=== PATIENT | female | born 1990 | race Caucasian/White ===

== ENCOUNTER 2018-06-11 09:17 | Emergency (ER) | payer OTHER, SELFPAY ==
[2018-06-11 09:33] VITALS: BP 116/86; PULSE 88; RESP 20; TEMP 37.4; O2SAT 98; BMI 30.1
--- NOTE | 2018-06-11 10:12 | ED_ITS ---
HPI - URI/Sore Throat General Chief Complaint: Upper Respiratory Symptoms Stated Complaint: strep throat Time Seen by Provider: 06/11/18 10:11 Source: patient Mode of arrival: ambulatory Limitations: no limitations History of Present Illness HPI Narrative: Patient is a 27-year-old female who presents to sore throat ongoing for last 4 days. She is able swallow and manage her own secretions however it is extremely painful. She actually is quite foul-smelling breath while talking to her. She has a nonproductive cough. MD Complaint: fever, cough, sore throat and rhinorrhea Onset (ago): day(s) (4) Duration: constant Exacerbating factors: swallowing Related Data Previous Rx's Medication Instructions Recorded clindamycin HCl 300 mg PO QID #28 cap 06/11/18 Review of Systems Constitutional Reports body ache(s), Reports chills, Reports fatigue and Reports fever(s) ENT Ears, Nose, Mouth, and Throat: Reports as per HPI, Reports halitosis and Reports sore throat Cardiovascular Denies dyspnea Respiratory Reports cough, Denies excessive phlegm production, Denies pain on inspiration and Denies dyspnea Gastrointestinal Gastrointestinal: Denies abdominal pain, Denies change in bowel habits, Denies diarrhea, Denies nausea and Denies vomiting Musculoskeletal Denies back pain, Denies muscle weakness, Denies numbness and Denies tingling Integumentary/Breasts Denies pruritus, Denies erythema, Denies rash and Denies wounds Neurologic Denies numbness and Denies tingling Endocrine Reports fatigue PFSH Medical History Patient denies significant medical history (Acute) Social History Smoking Status: Never smoker Social History Smoking Status: Never smoker Exam Initial Vital Signs Initial Vital Signs: Vital Signs Temperature 99.4 F 06/11/18 09:33 Pulse Rate 88 06/11/18 09:33 Respiratory Rate 20 06/11/18 09:33 Blood Pressure 116/86 06/11/18 09:33 Pulse Oximetry 98 06/11/18 09:33 GENERAL: In position appears to not feel well HEENT: Head atraumatic,EOMI, pupils reactive, face symmetric, neck is supple no meningeal signs PHARYNX: Erythematous gross pus no uvula deviation no tonsillar swelling CARDIOVASCULAR: Regular rate and rhythm without murmurs, rubs or gallops. RESPIRATORY: Breath sounds equal bilaterally, no wheezes rales or rhonchi. ABDOMEN: Soft, nontender. Normoactive bowel sounds all 4 quadrants. No guarding or rebound. EXTREMITIES: Normal range of motion, no clubbing or edema. Neurovascularly int act NEUROLOGICAL: Alert and oriented x4.Normal gait and speech. SKIN: Warm, dry, no laceration, no petechiae, no rashes or lesions. Course Vital Signs - 8 hr 06/11/18 09:33 Temperature 99.4 F Pulse Rate 88 Respiratory Rate 20 Blood Pressure 116/86 Pulse Oximetry 98 MDM - URI/Sore Throat Lab Data Point of Care Testing Rapid Strep A Positive Discharge Plan Departure Patient Disposition: Home Clinical Impression: Acute streptococcal pharyngitis Discharge Date/Time: 06/11/18 10:37 Interventions: ED Discharge Assessment Last Done: 06/11/18 10:35 Instructions: DI for Strep Throat Activity Restrictions/Additional Instructions: *You have been diagnosed with strep pharyngitis *What to do: Increase fluid intake *Continue to take medications as directed Clindamycin 300 mg 4 times a day for 7 days *Follow up with your primary care provider in 2-3 days *Return to ER if you should have difficulty swallowing, inability to swallow or any new, worsening or concerning symptoms Prescriptions: New clindamycin HCl 300 mg capsule 300 mg PO QID Qty: 28 RF: 0 Stand Alone Forms: Work Release Note, Work/School Release
[2018-06-11 10:35] VITALS: BP 101/75; PULSE 92; RESP 20; O2SAT 99
== END 2018-06-11 10:37 | disposition home or self-care (01) ==
PROVIDERS: Emergency Provider Emergency Medicine
DX: J02.0 Streptococcal pharyngitis (principal)
CPT/HCPCS: 87880; 99282; 99283

== ENCOUNTER 2018-11-03 20:26 | Emergency (ER) | payer OTHER, SELFPAY ==
--- NOTE | 2018-11-03 20:28 | ED_ITS ---
HPI - Extremity Injury (Upper) General Chief Complaint: Extremity Injury, Upper Stated Complaint: right shoulder pain Time Seen by Provider: 11/03/18 20:27 Source: patient and family Mode of arrival: ambulatory Limitations: no limitations History of Present Illness HPI narrative: 28-year-old female nonsmoker with benign medical history presents with a chief complaint severe right anterior shoulder pain gradually worsening since yesterday. She had performed a rather typical upper body workout and denies any memorable moment suggesting injury. She denies direct trauma. She denies numbness, weakness or history of the same MD complaint: injury to: right Onset (ago): day(s) Other injuries: none Handedness: right Place: other Severity: moderate Relieving factors: rest Exacerbating factors: movement of extremity Associated symptoms: denies other symptoms Related Data Previous Rx's Medication Instructions Recorded clindamycin HCl 300 mg PO QID #28 cap 06/11/18 Allergies Allergy/AdvReac Type Severity Reaction Status Date / Time No Known Drug Allergies Allergy Verified 11/03/18 20:37 Review of Systems Constitutional Denies chills, Denies fever(s), Denies lethargy and Denies weakness Eyes Denies change in vision, Denies eye discharge, Denies irritation and Denies loss of vision ENT Ears, Nose, Mouth, and Throat: Denies change in voice, Denies neck pain and Denies sore throat Cardiovascular Denies chest pain, Denies irregular heart rhythm, Denies lightheadedness, Denies palpitations, Denies dyspnea, Denies dyspnea on exertion and Denies orthopnea Respiratory Denies cough, Denies dyspnea, Denies dyspnea on exertion and Denies wheezing Gastrointestinal Gastrointestinal: Denies abdominal pain, Denies change in bowel habits, Denies diarrhea, Denies nausea and Denies vomiting Genitourinary Denies hematuria, Denies flank pain, Denies urinary incontinence and Denies urinary urgency Musculoskeletal Reports limited range of motion and Denies neck pain Integumentary/Breasts Denies pruritus, Denies erythema, Denies rash and Denies wounds Neurologic Denies confusion, Denies loss of vision and Denies weakness Psychiatric Denies anxiety, Denies confusion, Denies depression, Denies homicidal ideation and Denies suicidal ideation Endocrine Denies palpitations Hematologic/Lymphatic Denies easy bruising Allergic/Immunologic Denies wheezing [facility] Medical History Patient denies significant medical history (Acute) Social History Smoking Status: Never smoker Social History Smoking Status: Never smoker Exam Narrative Exam Narrative: GEN: AOx3 and in mild distress EYES: Pupils are equal, round, and reactive to light and accommodation. Extraoccular muscles are intact bilaterally. There is no subconjunctival hemorrhage or exudate. CHEST: Lungs are clear to auscultation bilaterally and free of wheezes, rales, or rhonchi. Heart rate is regular rhythm, there are no murmurs, clicks, rubs, or gallops. There is no chest wall tenderness. ABD: Abdomen is soft and nontender. There is no guarding or rebound. Bowel sounds are normal in all 4 quadrants. There is no mass or organomegaly. EXT: Full but painful range of motion of right shoulder. She has 5/5 strength and no loss of sensation. Cap refill less than 2 seconds. She is most tender in the anterior shoulder in the distribution of the biceps tendon SKIN: Warm, pink, and dry. No erythema or rash Initial Vital Signs Initial Vital Signs: Vital Signs Temperature 98.4 F 11/03/18 20:37 Pulse Rate 66 11/03/18 20:37 Respiratory Rate 18 11/03/18 20:37 Blood Pressure 136/84 11/03/18 20:37 Pulse Oximetry 97 11/03/18 20:37 Course Vital Signs - 8 hr 11/03/18 20:37 Temperature 98.4 F Pulse Rate 66 Respiratory Rate 18 Blood Pressure 136/84 Pulse Oximetry 97 MDM - Extremity Injury (Upper) MDM Narrative Medical decision making narrative: Patient has full but painful range of motion of shoulder in the absence of memory will injury or direct trauma. X-ray not indicated as there is no bony point tenderness or high risk trauma. History and physical would suggest soft tissue injury, patient refuses a sling at this point in time. Return precautions given, questions answered to her apparent sat isfaction Discharge Plan Departure Patient Disposition: Home Clinical Impression: Muscle strain of right shoulder Qualifiers: Encounter type: initial encounter Qualified Code(s): S46.911A - Strain of unspecified muscle, fascia and tendon at shoulder and upper arm level, right arm, initial encounter Instructions: DI for Shoulder Sprain Activity Restrictions/Additional Instructions: *You have been diagnosed with [right shoulder strain] *What to do: *Take medications as directed: Motrin on a schedule as we discussed *Follow up with your primary care provider in 5-7 days, call for an appointment. Let them know you were seen in the Emergency Department and that we ask that you be seen in follow up *Return to ER if you should have any new, worsening or concerning symptoms, such as [worsening pain, weakness, worsening numbness, tingling or other bothersome symptoms * consider the use of resistance bands as we discussed * if you change your mind and decide you would like a shoulder sling they can be found at most local pharmacies Prescriptions: No Action clindamycin HCl 300 mg capsule 300 mg PO QID Qty: 28 RF: 0
[2018-11-03 20:37] VITALS: BP 136/84; PULSE 66; RESP 18; TEMP 36.9; O2SAT 97; BMI 29.7
== END 2018-11-03 21:01 | disposition home or self-care (01) ==
PROVIDERS: Emergency Provider Emergency Medicine
DX: S46.911A Strain of unspecified muscle, fascia and tendon at shoulder and upper arm level, right arm, initial encounter (principal)
CPT/HCPCS: 99282; 99283

== ENCOUNTER 2019-02-13 15:44 | Emergency (ER) | payer OTHER, SELFPAY ==
[2019-02-13 15:57] VITALS: BP 112/71; PULSE 59; RESP 16; TEMP 36.4; O2SAT 100
[2019-02-13 16:21] LABS: Add Manual Diff / Slide Review NO; Basophils Absolute Auto 0 /uL (0-100); Basophils Percent Auto 0.5 % (0-2); Eosinophils Absolute Auto 100 /uL (0-450); Eosinophils Percent Auto 1.1 % (2-4); Hemoglobin 13.3 g/dL (12.0-16.0); Lymphocytes Absolute Auto 3100 /uL (1100-4500); Lymphocytes Percent Auto 41.5 % (25-40); Mean Corpuscular HGB Conc 34.1 % (30-36); Monocytes Absolute Auto 400 /uL (0-900); Monocytes Percent Auto 5.6 % (3-14); Neutrophils Absolute Auto 3800 /uL (1500-7000); Neutrophils Percent Auto 51.3 % (50-75); Platelet Count 247 X10^3/uL (150-400); Red Blood Cell Count 4.28 X10^6/uL (4.0-5.2); Red Cell Distribution Width 12.4 % (11.6-14.8); White Blood Cell Count 7.4 X10^3/uL (4.5-11.0)
--- NOTE | 2019-02-13 16:21 | ED.DIZZY ---
HPI - Dizziness <ABRAHAM Carrasco - Last Filed: 02/13/19 21:33> General Chief Complaint: Dizziness Stated Complaint: dizzy, nauseaus Time Seen by Provider: 02/13/19 16:08 Source: patient Mode of arrival: Ambulatory History of Present Illness HPI Narrative: 28-year-old female with history of vertigo and migraines, presents emergency department today complaining of an onset of dizziness while wiping down a table with a bleach water solution. She states she felt lightheaded and like the room was spinning, she sat down and after a few minutes developed a headache and light sensitivity around 2pm today. She took a meclizine 3:30pm today which has helped with her symptoms. She reports her last episode of vertigo occurred a few years ago in only lasted about 30 minutes. She decided to seek care today for ongoing a room spinning that is worse with with movement and turning her head to the left as well as associated nausea. She also complains of a dull aching 4/10 headache to the top of her head. She denies vomiting, vision loss, neck pain, stomach pain, diarrhea, chest pain, shortness of breath, or other concerns. Related Data Previous Rx's Medication Instructions Recorded clindamycin HCl 300 mg PO QID #28 cap 06/11/18 meclizine 25 mg PO TID #20 tab 02/13/19 Allergies Allergy/AdvReac Type Severity Reaction Status Date / Time Penicillins Allergy Verified 02/13/19 15:58 Review of Systems <ABRAHAM Carrasco - Last Filed: 02/13/19 21:33> Review of Systems Narrative: REVIEW OF SYSTEMS: GENERAL: Denies fever or chills. HENT: No head trauma, hearing loss or sore throat. Complains of headache, see HPI. EYES: No loss of vision, double vision, eye pain, or irritation. CARDIOVASCULAR: No chest pain or syncope. RESPIRATORY: No shortness of breath or cough. GASTROINTESTINAL: Complains of nausea, see HPI. GENITOURINARY: No flank pain or dysuria. MUSCULOSKELETAL: No pain, weakness, or deformities. INTEGUMENTARY: No rash, lesions, or pruritus. NEURO: No numbness, tingling, memory loss, or confusion. Complains of vertigo, see HPI. PSYCH: No behavior or mood changes. Patient History <ABRAHAM Carrasco - Last Filed: 02/13/19 21:33> Medical History Patient denies significant medical history (Acute) Social History Smoking Status: Never smoker alcohol intake frequency: holidays/special occasions only Substance Use Type: does not use Exam <ABRAHAM Carrasco - Last Filed: 02/13/19 21:33> Initial Vital Signs Initial Vital Signs: Vital Signs Temperature 97.6 F 02/13/19 15:57 Pulse Rate 59 L 02/13/19 15:57 Respiratory Rate 16 02/13/19 15:57 Blood Pressure 112/71 02/13/19 15:57 Pulse Oximetry 100 02/13/19 15:57 PHYSICAL EXAMINATION: GENERAL: Well groomed, alert, and cooperative. Answers questions promptly and appropriately. Vital signs noted. HENT: Normocephalic, atraumatic. Ear canals patent. Oral mucosa is pink and moist. EYES: PERRLA, EOMIs, conjunctiva pink, sclera white, no periorbital swelling. No nystagmus. CHEST: Normal to inspection and without deformities. CARDIOVASCULAR: S1 and S2 sounds normal. Regular rate and rhythm, no murmurs, clicks, or bruits. No pedal edema. RESPIRATORY: Normal respiratory rate, trachea midline, airway patent. No stridor, nasal flaring or accessory muscle use. Lungs are clear in all morel without wheeze, rhonchi, or crackles. GASTROINTESTINAL: Bowel sounds normoactive. Abdomen is soft and non-tender. No organomegaly. MUSCULOSKELETAL: Normal gait and coordination. Equal tone and mass bilaterally. EXTREMITIES: CMS intact. Moves all extremities. SKIN: Warm, dry, soft, appropriate color for ethnicity. No lesions, rashes, or wounds. NEURO: Alert and Oriented X 3. CN III-XIII intact. Good coordination. No ataxia, or sensory deficits, or cognitive issues. + Coni- Hallpike maneuver. Patient's symptoms resolved after administration of medications. PSYCH: Appropriate affect and mood. <Josr Chester MD - Last Filed: 02/14/19 00:17> Initial Vital Signs Initial Vital Signs: Vital Signs Temperature 97.6 F 02/13/19 15:57 Pulse Rate 59 L 02/13/19 15:57 Respiratory Rate 16 02/13/19 15:57 Blood Pressure 112/71 02/13/19 15:57 Pulse Oximetry 100 02/13/19 15:57 Course <ABRAHAM Carrasco - Last Filed: 02/13/19 21:33> Course Course Narrative: Patient was given 1 L of IV fluids, 25 mg of meclizine, and 4 mg of Zofran. She reports that the vertigo has almost completely resolved, she is able to sit and stand without any symptoms. She continued to complain of a headache (which has also decreased in severity to a 2/10) and a small amount of nausea. She was given IV Reglan and Toradol which also improved her symptoms. Orders Ordered: ED Orders 02/13/19 16:05 EKG-12 Lead Stat 02/13/19 16:15 CMP [Comprehensive Metabolic Panel] Stat Complete Blood Count AUTO DIFF Stat Discontinued Medications Sodium Chloride (Normal Saline 0.9%) 1,000 mls @ 1,000 mls/hr IV BOLUS ONE Stop: 02/13/19 17:16 Last Infusion: 02/13/19 17:51 Dose: 0 mls/hr Documented by: Admin: 02/13/19 16:57 Dose: 1,000 mls/hr Documented by: NAN Ketorolac Tromethamine (Toradol) 30 mg IV NOW ONE Stop: 02/13/19 17:45 Last Admin: 02/13/19 18:20 Dose: 30 mg Documented by: OUSMANE Meclizine HCl (Antivert) 25 mg PO NOW ONE Stop: 02/13/19 16:18 Last Admin: 02/13/19 16:57 Dose: 25 mg Documented by: NAN Metoclopramide HCl (Reglan) 10 mg IV NOW ONE Stop: 02/13/19 17:45 Last Admin: 02/13/19 18:20 Dose: 10 mg Documented by: OUSMANE Ondansetron HCl (Zofran) 4 mg IV NOW ONE Stop: 02/13/19 16:18 Last Admin: 02/13/19 16:57 Dose: 4 mg Documented [facility]: [facility] Consultations Consultation #1: Patient staffed with Dr. Chester. Vital Signs Vital signs: Vital Signs - 8 hr 02/13/19 18:40 Pulse Rate 79 Respiratory Rate 16 Blood Pressure [Left Arm] 117/77 Pulse Oximetry 99 <Josr Chester MD - Last Filed: 02/14/19 00:17> Orders Ordered: ED Orders 02/13/19 16:05 EKG-12 Lead Stat 02/13/19 16:15 CMP [Comprehensive Metabolic Panel] Stat Complete Blood Count AUTO DIFF Stat Discontinued Medications Sodium Chloride (Normal Saline 0.9%) 1,000 mls @ 1,000 mls/hr IV BOLUS ONE Stop: 02/13/19 17:16 Last Infusion: 02/13/19 17:51 Dose: 0 mls/hr Documented by: Admin: 02/13/19 16:57 Dose: 1,000 mls/hr Documented by: NAN Ketorolac Tromethamine (Toradol) 30 mg IV NOW ONE Stop: 02/13/19 17:45 Last Admin: 02/13/19 18:20 Dose: 30 mg Documented by: OUSMANE Meclizine HCl (Antivert) 25 mg PO NOW ONE Stop: 02/13/19 16:18 Last Admin: 02/13/19 16:57 Dose: 25 mg Documented by: NAN Metoclopramide HCl (Reglan) 10 mg IV NOW ONE Stop: 02/13/19 17:45 Last Admin: 02/13/19 18:20 Dose: 10 mg Documented by: OUSMANE Ondansetron HCl (Zofran) 4 mg IV NOW ONE Stop: 02/13/19 16:18 Last Admin: 02/13/19 16:57 Dose: 4 mg Documented by: NAN Vital Signs Vital signs: Vital Signs - 8 hr 02/13/19 18:40 Pulse Rate 79 Respiratory Rate 16 Blood Pressure [Left Arm] 117/77 Pulse Oximetry 99 MDM - Dizziness <ABRAHAM Carrasco - Last Filed: 02/13/19 21:33> Medical Records Attestation: I reviewed the patient's medical records. Lab Data Attestation: I reviewed the patient's lab results. Result diagrams: 02/13/19 16:15 02/13/19 16:15 Labs: Lab Results 02/13/19 02/13/19 Range/Units 16:15 16:15 WBC 7.4 (4.5-11.0) X10^3/uL RBC 4.28 (4.0-5.2) X10^6/uL Hgb 13.3 (12.0-16.0) g/dL Hct 39.0 (36-46) % MCV 91.0 (80-100) fL MCH 31.0 (26-34) PG MCHC 34.1 (30-36) % RDW 12.4 (11.6-14.8) % Plt Count 247 (150-400) X10^3/uL Neut % (Auto) 51.3 (50-75) % Lymph % (Auto) 41.5 H (25-40) % Coffey % (Auto) 5.6 (3-14) % Eos % (Auto) 1.1 L (2-4) % Baso % (Auto) 0.5 (0-2) % Neut # (Auto) 3800 (6574-3585) /uL Lymph # (Auto) 3100 (5166-9007) /uL Coffey # (Auto) 400 (0-900) /uL Eos # (Auto) 100 (0-450) /uL Baso # (Auto) 0 (0-100) /uL Sodium 139 (137-145) mmol/L Potassium 3.8 (3.4-5.1) mmol/L Chloride 101 (98-107) mmol/L Carbon Dioxide 29 (22-32) mmol/L BUN 16 (7-17) mg/dL Creatinine 0.90 (0.52-1.04) mg/dL Estimated GFR > 60.0 (>60) mL/min BUN/Creatinine Ratio 17.8 (6-22) Glucose 100 (70-100) mg/dL Calcium 9.0 (8.4-10.2) mg/dL Total Bilirubin 0.5 (0.2-1.3) mg/dL AST 35 (14-36) IU/L ALT 25 (<35) IU/L Alkaline Phosphatase 72 (38-126) U/L Total Protein 7.3 (6.3-8.2) g/dL Albumin 4.3 (3.5-5.0) g/dL Globulin 3.0 (1.7-4.1) g/dL Albumin/Globulin Ratio 1.4 (1.0-2.8) Point of Care Testing Test Results Negative Urine Dip Bedside Urine Glucose Negative Bedside Urine Bilirubin - Negative Bedside Urine Ketone - Negative Urine Specific [place] 1.015 Bedside Urine Occult Blood - Negative Bedside Urine pH 7.0 Bedside Urine Protein - Negative Bedside Urine Urobilinogen - Negative Bedside Urine Nitrite - Negative Bedside Urine Leukocytes - Negative Esterase ECG Data Interpretation: Normal sinus rhythm, rate 60, CA interval 167, QTC 402. No ST depression or ST elevation. No T-wave abnormality. No ectopy. EKG was also viewed by Dr. Haider per protocol. MDM Narrative Medical decision making narrative: This is a 28-year-old female with a history of vertigo and migraines, presents emergency department with ?room spinning? and a headace, symptoms resolved after administration of meclizine, Zofran, and NS. Differential includes most likely benign positional vertigo versus migraine (history of migraines, history of BPV, positive Gilmer-Hallpike maneuver, resolution of symptoms after administration of medication, normal neurological exam). Less likely CVA (normal neurological exam, resolution of symptoms), cardiac etiology (less likley due to unremarkable lab work, unremarkable rib EKG), and less likely infectious etiology (lack of systemic symptoms such as tachycardia or fevers, unremarkable laboratory results, and lack of other symptoms such as abdominal pain). Strict return precautions given and follow-up instructions discussed. <Josr Chester MD - Last Filed: 02/14/19 00:17> Lab Data Labs: Lab Results 02/13/19 02/13/19 Range/Units 16:15 16:15 WBC 7.4 (4.5-11.0) X10^3/uL RBC 4.28 (4.0-5.2) X10^6/uL Hgb 13.3 (12.0-16.0) g/dL Hct 39.0 (36-46) % MCV 91.0 (80-100) fL MCH 31.0 (26-34) PG MCHC 34.1 (30-36) % RDW 12.4 (11.6-14.8) % Plt Count 247 (150-400) X10^3/uL Neut % (Auto) 51.3 (50-75) % Lymph % (Auto) 41.5 H (25-40) % Coffey % (Auto) 5.6 (3-14) % Eos % (Auto) 1.1 L (2-4) % Baso % (Auto) 0.5 (0-2) % Neut # (Auto) 3800 (8702-5065) /uL Lymph # (Auto) 3100 (6091-7303) /uL Coffey # (Auto) 400 (0-900) /uL Eos # (Auto) 100 (0-450) /uL Baso # (Auto) 0 (0-100) /uL Sodium 139 (137-145) mmol/L Potassium 3.8 (3.4-5.1) mmol/L Chloride 101 (98-107) mmol/L Carbon Dioxide 29 (22-32) mmol/L BUN 16 (7-17) mg/dL Creatinine 0.90 (0.52-1.04) mg/dL Estimated GFR > 60.0 (>60) mL/min BUN/Creatinine Ratio 17.8 (6-22) Glucose 100 (70-100) mg/dL Calcium 9.0 (8.4-10.2) mg/dL Total Bilirubin 0.5 (0.2-1.3) mg/dL AST 35 (14-36) IU/L ALT 25 (<35) IU/L Alkaline Phosphatase 72 (38-126) U/L Total Protein 7.3 (6.3-8.2) g/dL Albumin 4.3 (3.5-5.0) g/dL Globulin 3.0 (1.7-4.1) g/dL Albumin/Globulin Ratio 1.4 (1.0-2.8) Point of Care Testing Test Results Negative Urine Dip Bedside Urine Glucose Negative Bedside Urine Bilirubin - Negative Bedside Urine Ketone - Negative Urine Specific [place] 1.015 Bedside Urine Occult Blood - Negative Bedside Urine pH 7.0 Bedside Urine Protein - Negative Bedside Urine Urobilinogen - Negative Bedside Urine Nitrite - Negative Bedside Urine Leukocytes - Negative Esterase Discharge Plan Departure Patient Disposition: Home Clinical Impression: Vertigo Discharge Date/Time: 02/13/19 19:01 Instructions: DI for Vertigo Activity Restrictions/Additional Instructions: Thank you for entrusting me with your care today. As discussed, your blood work is unremarkable. It is possible that your symptoms may be caused by migraine and or benign positional vertigo. I prescribed you meclizine, please take this as needed for vertigo. Follow up with your primary care provider in the next few weeks for re-evaluation. Return emergency department if you develop chest pain, shortness of breath, uncontrollable vomiting, or new or worsening symptoms. Prescriptions: New meclizine 25 mg tablet 25 mg PO TID Qty: 20 RF: 0 No Action clindamycin HCl 300 mg capsule 300 mg PO QID Qty: 28 RF: 0
[2019-02-13 16:39] LABS: Alanine Aminotransferase 25 IU/L (<35); Albumin 4.3 g/dL (3.5-5.0); Albumin Globulin Ratio 1.4 (1.0-2.8); Alkaline Phosphatase 72 U/L (38-126); Aspartate Aminotransferase 35 IU/L (14-36); BUN Creatinine Ratio 17.8 (6-22); Bilirubin Total 0.5 mg/dL (0.2-1.3); Blood Urea Nitrogen 16 mg/dL (7-17); Carbon Dioxide 29 mmol/L (22-32); Chloride 101 mmol/L (98-107); Estimated Glomerular Filt Rate > 60.0 mL/min (>60); Glucose 100 mg/dL (70-100); HEMOLYSIS < 15 (0-50); Potassium 3.8 mmol/L (3.4-5.1); Sodium 139 mmol/L (137-145); Total Protein 7.3 g/dL (6.3-8.2)
[2019-02-13] MEDS: MECLIZINE HCL 12.5 MG TABLET 25 MG PO (16:57)
[2019-02-13] MEDS: ONDANSETRON 4 MG/2 ML INJ IV (16:57)
[2019-02-13] MEDS: SODIUM CHLORIDE 0.9% 1,000 ML 1000 ML IV (16:57)
[2019-02-13] MEDS: METOCLOPRAMIDE 10 MG/2 ML INJ IV (18:20)
[2019-02-13] MEDS: KETOROLAC 60 MG/2 ML VIAL 30 MG IV (18:20)
[2019-02-13 18:40] VITALS: BP 117/77; PULSE 79; RESP 16; O2SAT 99
== END 2019-02-13 19:01 | disposition home or self-care (01) ==
PROVIDERS: Emergency Medicine; Emergency Provider Nurse Practitioner
DX: R42 Dizziness and giddiness (principal)
CPT/HCPCS: 36415; 80053; 81003; 81025; 85025; 93005; 96361; 96374; 96375; 99283; 99284; J1885; J2405; J2765